=== PATIENT | female | born 1955 | race African-American/Black ===

== ENCOUNTER 2017-11-09 08:05 | Emergency (ER) | payer MEDICARE ==
[~2017-11-09] VITALS: Ht 165.1 cm; Wt 128.0 kg
[2017-11-09] MEDS ORDERED: ONDANSETRON HCL 4MG/2ML VIAL IV STA (09:14)
[2017-11-09] MEDS ORDERED: ASPIRIN 81MG TABLET PO STA (09:14)
[2017-11-09] MEDS ORDERED: NITROGLYCERIN 0.4MG TABLET SL SL PRN ×2 (09:15→12:15)
[2017-11-09 09:52] LABS: BASOPHILS % 0.6 % (0.0-2.0); EOSINOPHILS % 0.9 % (0.0-5.0); HEMOGLOBIN. 12.2 g/dL (12.0-16.0); LYMPHOCYTES % 15.3 % (20.0-50.0); MEAN CORPUSCULAR HEMOGLOBIN 29.5 pg (28.0-32.0); MEAN CORPUSCULAR VOLUME 91.8 fL (81.0-99.0); MEAN PLATELET VOLUME 9.6 fl (7.4-10.4); MONOCYTES % 7.9 % (2.0-8.0); NEUTROPHILS % 75.3 % (40.0-76.0); PLATELET 229 x1000/uL (130-400); RED BLOOD CELL COUNT 4.14 mill/uL (4.2-5.4); RED CELL DISTRIBUTION WIDTH 12.8 % (11.6-14.6)
[2017-11-09 09:59] LABS: CHLORIDE 106 mEq/L (98-107)
[2017-11-09 10:02] LABS: PARTIAL THROMBOPLASTIN TIME 25.4 sec (23.4-31.0); PROTHROMBIN TIME 10.5 sec (9.4-11.6)
[2017-11-09] MEDS ORDERED: ONDANSETRON HCL 4MG/2ML VIAL IV PRN (12:15)
[2017-11-09] MEDS ORDERED: NA PHOS,M-B/NA PHOS,DI-BA ENEMA 118ML PR PRN (12:15)
[2017-11-09] MEDS ORDERED: LORAZEPAM 0.5MG TABLET PO PRN (12:15)
[2017-11-09] MEDS ORDERED: CLONIDINE 0.1MG TABLET PO PRN (12:15)
[2017-11-09] MEDS ORDERED: ENOXAPARIN 40MG/0.4ML SYR SUBCUT SCH (12:15)
[2017-11-09] MEDS ORDERED: DOCUSATE SODIUM 100MG CAPSULE PO PRN (12:15)
[2017-11-09] MEDS ORDERED: MAGNESIUM/ALUMINUM HYDROXIDE/SIMETHICONE 30ML UDC PO PRN (12:15)
[2017-11-09] MEDS ORDERED: IPRATROPIUM/ALBUTEROL 0.5-3(2.5)MG/3ML NEB INH PRN (12:15)
[2017-11-09] MEDS ORDERED: DIPHENHYDRAMINE 50MG/ML VIAL IV PRN (12:15)
[2017-11-09] MEDS ORDERED: ACETAMINOPHEN 325MG TABLET PO PRN (12:15)
[2017-11-09] MEDS ORDERED: ZOLPIDEM TARTRATE 5MG TABLET PO PRN (12:15)
[2017-11-09] MEDS ORDERED: GUAIFENESIN 200MG/10ML SUGAR FREE UDC PO PRN (12:15)
[2017-11-09] MEDS ORDERED: TRAMADOL 50MG TABLET PO PRN (12:15)
[2017-11-09 12:50] VITALS: BP 136/74
[2017-11-09] MEDS ORDERED: FAMOTIDINE 20MG TABLET PO SCH (21:00)
[2017-11-09] MEDS ORDERED: METOPROLOL TARTRATE 25MG TABLET PO SCH (21:00)
[2017-11-10] MEDS ORDERED: ASPIRIN 325MG EC TABLET PO SCH (09:00)
== END 2017-11-09 13:43 | disposition left against medical advice (07) ==
LOC: ER 08:05 → EDBEDREQ 10:59 → ENRESERV 12:07 → CANRESERV 12:07 → SUPCPDRO 12:08 → ER 13:43 → CANBEDREQ 14:55
DX: R07.89 Other chest pain (principal); E11.9 Type 2 diabetes mellitus without complications; I10 Essential (primary) hypertension; R10.33 Periumbilical pain; Z88.5 Allergy status to narcotic agent
CPT/HCPCS: 36415; 71045; 76705; 80053; 80061; 83036; 83690; 84484; 85025; 85610; 85730; 93005; 93970; 96374; 99285; J2405

== ENCOUNTER 2021-08-31 12:29 | Inpatient (IN) | payer MEDICARE ==
[~2021-08-31] VITALS: Ht 170.2 cm; Wt 127.0 kg
[2021-08-31] MEDS ORDERED: ONDANSETRON HCL 4MG/2ML INJ IV STA (12:54)
[2021-08-31] MEDS ORDERED: KETOROLAC 15MG/ML VIAL IV ONE (13:00)
[2021-08-31] MEDS ORDERED: SODIUM CHLORIDE 0.9% 1,000 ML IV ONE (13:00)
[2021-08-31] MEDS ORDERED: LORAZEPAM 2MG/ML CPJ IV ONE ×2 (14:30→15:45)
[2021-08-31 15:03] LABS: HEMATOCRIT. 35.7 % (36.0-48.0); HEMOGLOBIN. 11.9 g/dL (12.0-16.0); MEAN CORPUSCULAR HEMOGLOBIN 29.2 pg (28.0-32.0); MEAN CORPUSCULAR VOLUME 87.8 fL (81.0-99.0); MEAN PLATELET VOLUME 9.4 fl (7.4-10.4); PLATELET 181 x1000/uL (130-400); RED BLOOD CELL COUNT 4.07 mill/uL (4.2-5.4); RED CELL DISTRIBUTION WIDTH 13.5 % (11.6-14.6)
[2021-08-31 15:04] LABS: CLARITY URINE CLEAR (CLEAR); COLOR URINE YELLOW (YELLOW); KETONES URINE TRACE (NEGATIVE); LEUKOCYTE ESTERASE URINE NEGATIVE (NEGATIVE); NITRITE URINE NEGATIVE (NEGATIVE); OCCULT BLOOD URINE NEGATIVE (NEGATIVE); PROTEIN URINE TRACE (NEGATIVE); SPECIFIC GRAVITY URINE 1.029 (1.005-1.030)
[2021-08-31 15:18] LABS: CHLORIDE 105 mEq/L (98-107)
[2021-08-31] MEDS ORDERED: CEFTRIAXONE 1 G PREMIX 50 ML IV ONE (15:45)
[2021-08-31] MEDS ORDERED: SODIUM BICARBONATE 8.4% 1 MEQ/ML 50ML SYR IV ONE (16:00)
[2021-08-31] MEDS ORDERED: ASPIRIN 325MG EC TABLET PO ONE (16:30)
[2021-08-31] MEDS ORDERED: CEFTRIAXONE 1 G PREMIX 50 ML IV NR (18:00)
[2021-08-31] MEDS ORDERED: KETOROLAC 15MG/ML VIAL IV NR (18:00)
[2021-08-31] MEDS ORDERED: SODIUM BICARBONATE 8.4% 1 MEQ/ML 50ML SYR IV NR (18:00)
[2021-08-31] MEDS ORDERED: ASPIRIN 325MG EC TABLET PO NR (18:00)
[2021-08-31] MEDS ORDERED: ONDANSETRON HCL 4MG/2ML INJ IV NR (18:00)
[2021-08-31] MEDS ORDERED: CLONIDINE 0.1MG TABLET PO PRN (18:45)
[2021-08-31] MEDS ORDERED: DOCUSATE SODIUM 100MG CAPSULE PO PRN (18:45)
[2021-08-31] MEDS ORDERED: DEXTROSE 50% WATER 50ML SYRINGE IV PRN (18:45)
[2021-08-31] MEDS ORDERED: IPRATROPIUM/ALBUTEROL 0.5-3(2.5)MG/3ML NEB HHN PRN (18:45)
[2021-08-31] MEDS ORDERED: ONDANSETRON HCL 4MG/2ML INJ IV PRN (18:45)
[2021-08-31] MEDS ORDERED: LORAZEPAM 0.5MG TABLET PO PRN (18:45)
[2021-08-31] MEDS ORDERED: HYDROCODONE/ACETAMINOPHEN 5/325MG TABLET PO PRN (18:45)
[2021-08-31] MEDS ORDERED: ACETAMINOPHEN 325MG TABLET PO PRN ×2 (18:45)
[2021-08-31] MEDS ORDERED: NALOXONE HCL 0.4MG/ML VIAL IV PRN (19:15)
[2021-08-31 20:49] LABS: PLATELET ESTIMATE NORMAL
[2021-08-31] MEDS ORDERED: BLOOD SUGAR DIAGNOSTIC STRIP TEST SCH (21:00)
[2021-08-31] MEDS: ENOXAPARIN 30MG/0.3ML SYR SUBCUT SCH ×2 (21:00→22:10)
[2021-08-31] MEDS ORDERED: INSULIN LISPRO 100 UNITS/ML SUBCUT SCH (21:00)
[2021-08-31 21:29] VITALS: BP 147/63
[2021-08-31 22:00] VITALS: BP 125/68
[2021-08-31] MEDS ORDERED: ALBUTEROL 6.7GM HFA INHALER ORI PRN (22:15)
[2021-09-01 06:00] VITALS: BP 136/65
[2021-09-01 06:18] LABS: HEMATOCRIT. 36.7 % (36.0-48.0); HEMOGLOBIN. 12.2 g/dL (12.0-16.0); MEAN CORPUSCULAR HEMOGLOBIN 29.7 pg (28.0-32.0); MEAN CORPUSCULAR VOLUME 89.1 fL (81.0-99.0); PLATELET 160 x1000/uL (130-400); RED BLOOD CELL COUNT 4.12 mill/uL (4.2-5.4); RED CELL DISTRIBUTION WIDTH 13.9 % (11.6-14.6)
[2021-09-01 07:16] LABS: CHLORIDE 106 mEq/L (98-107)
[2021-09-01 08:00] VITALS: BP 125/52
[2021-09-01] MEDS: ENOXAPARIN 30MG/0.3ML SYR SUBCUT SCH ×2 (08:44→21:00)
[2021-09-01] MEDS ORDERED: DEXTROSE 50% WATER 50ML SYRINGE IV PRN (09:00)
[2021-09-01] MEDS ORDERED: TRIA1TAB92 MT (11:02)
[2021-09-01] MEDS ORDERED: GLIM4TAB36 MT (11:02)
[2021-09-01] MEDS ORDERED: SIMV10TA97 MT (11:02)
[2021-09-01 11:42] LABS: *AMPHETAMINES SCREEN URINE NEGATIVE (NEGATIVE); *BARBITURATES SCREEN URINE NEGATIVE (NEGATIVE); *BENZODIAZEPINES SCREEN URINE NEGATIVE (NEGATIVE); *COCAINE SCREEN URINE NEGATIVE (NEGATIVE); CANNABINOID URINE SCREEN NEGATIVE (NEGATIVE); METHADONE URINE SCREEN NEGATIVE (NEGATIVE); OPIATES URINE SCREEN NEGATIVE (NEGATIVE); PHENCYCLIDINE URINE SCREEN NEGATIVE (NEGATIVE)
[2021-09-01] MEDS: BLOOD SUGAR DIAGNOSTIC STRIP TEST SCH ×3 (11:48→21:00)
[2021-09-01] MEDS: INSULIN LISPRO 100 UNITS/ML SUBCUT SCH ×4 (11:48→21:00)
[2021-09-01 12:00] VITALS: BP 149/80
[2021-09-01] MEDS ORDERED: VALS160T2 PO (15:15)
[2021-09-01 16:00] VITALS: BP 124/51
[2021-09-01] MEDS ORDERED: CYAN500T9 MT (17:20)
[2021-09-01] MEDS ORDERED: CHOL400D7 PO (17:20)
[2021-09-01] MEDS: DIOVAN 160 MG PO SCH (18:08)
[2021-09-01] MEDS: GLIMEPIRIDE 2MG TABLET PO SCH (18:09)
[2021-09-01 20:00] VITALS: BP 146/51
[2021-09-01 20:33] LABS: PLATELET ESTIMATE NORMAL
[2021-09-01] MEDS: SIMVASTATIN 10MG TABLET PO SCH (22:23)
[2021-09-02] VITALS: BP 120/62
[2021-09-02 04:00] VITALS: BP 130/70
[2021-09-02] MEDS: BLOOD SUGAR DIAGNOSTIC STRIP TEST SCH ×4 (06:56→21:00)
[2021-09-02] MEDS: INSULIN LISPRO 100 UNITS/ML SUBCUT SCH ×4 (06:57→21:00)
[2021-09-02 08:00] VITALS: BP 114/60
[2021-09-02] MEDS: DIOVAN 160 MG PO SCH ×2 (09:00→16:47)
[2021-09-02] MEDS: TRIAMTERENE/HYDROCHLOROTHIAZIDE 37.5/25MG CAPSULE PO SCH (09:00)
[2021-09-02] MEDS: GLIMEPIRIDE 2MG TABLET PO SCH ×3 (09:00→21:00)
[2021-09-02] MEDS: ENOXAPARIN 30MG/0.3ML SYR SUBCUT SCH ×2 (09:00→21:00)
[2021-09-02 12:00] VITALS: BP 112/56
[2021-09-02 16:00] VITALS: BP 122/61
[2021-09-02] MEDS ORDERED: MORPHINE SULFATE 2 MG/ML CPJ (NOT FOR IM USE) IV PRN (19:30)
[2021-09-02 20:00] VITALS: BP 131/83
[2021-09-02] MEDS ORDERED: DIOVAN 160 MG PO SCH (21:00)
[2021-09-02] MEDS: SIMVASTATIN 10MG TABLET PO SCH (22:25)
[2021-09-03 04:00] VITALS: BP 133/58
[2021-09-03] MEDS: BLOOD SUGAR DIAGNOSTIC STRIP TEST SCH ×2 (06:40→12:12)
[2021-09-03] MEDS: INSULIN LISPRO 100 UNITS/ML SUBCUT SCH ×2 (07:10→12:10)
[2021-09-03 07:44] LABS: BASOPHILS % 0.3 % (0.0-2.0); EOSINOPHILS % 1.8 % (0.0-5.0); HEMOGLOBIN. 12.9 g/dL (12.0-16.0); MEAN CORPUSCULAR HEMOGLOBIN 29.3 pg (28.0-32.0); MEAN CORPUSCULAR VOLUME 88.5 fL (81.0-99.0); MEAN PLATELET VOLUME 10.1 fl (7.4-10.4); MONOCYTES % 14.3 % (2.0-8.0); NEUTROPHILS % 45.6 % (40.0-76.0); PLATELET 192 x1000/uL (130-400); RED BLOOD CELL COUNT 4.41 mill/uL (4.2-5.4); RED CELL DISTRIBUTION WIDTH 13.1 % (11.6-14.6)
[2021-09-03 08:00] VITALS: BP 125/68
[2021-09-03 08:09] LABS: CHLORIDE 102 mEq/L (98-107)
[2021-09-03] MEDS: ENOXAPARIN 30MG/0.3ML SYR SUBCUT SCH (09:00)
[2021-09-03] MEDS: TRIAMTERENE/HYDROCHLOROTHIAZIDE 37.5/25MG CAPSULE PO SCH (09:25)
[2021-09-03] MEDS: GLIMEPIRIDE 2MG TABLET PO SCH (09:25)
[2021-09-03 12:00] VITALS: BP 130/81
[2021-09-03 14:03] VITALS: BP 125/78
== END 2021-09-03 16:20 | disposition home or self-care (01) | DRG 178 ==
LOC: ER 12:59 → 7EST 16:14 → EDBEDREQ 17:36 → ENRESERV 19:03
PROVIDERS: ADMIT Internal Medicine; ATTEND Internal Medicine
DX: U07.1 COVID-19 (principal); N39.0 Urinary tract infection, site not specified; Z68.41 Body mass index [BMI] 40.0-44.9, adult; K65.4 Sclerosing mesenteritis; E11.9 Type 2 diabetes mellitus without complications; E87.5 Hyperkalemia; I10 Essential (primary) hypertension; D64.9 Anemia, unspecified; E66.01 Morbid (severe) obesity due to excess calories; Z88.8 Allergy status to other drugs, medicaments and biological substances
CPT/HCPCS: 36415; 71045; 74176; 80048; 80053; 80305; 81003; 82728; 82962; 83036; 83880; 84132; 84145; 84484; 85025; 86140; 87426; 93005; 99285; J0696; J1650; J1885; J2060; J2270; J2405; J3490; J7030

== ENCOUNTER 2022-04-02 12:01 | Emergency (ER) | payer MEDICARE ==
[~2022-04-02] VITALS: Ht 160 cm; Wt 103.0 kg
[~2022-04-02 12:01] MED LIST: CHOL400D7 PO; CYAN500T9 MT; GLIM4TAB36 MT; SIMV10TA97 MT; TRIA1TAB92 MT; VALS160T2 PO
[2022-04-02] MEDS ORDERED: KETOROLAC 60MG/2ML VIAL IM STA (15:55)
[2022-04-02 16:39] LABS: CLARITY URINE CLEAR (CLEAR); COLOR URINE YELLOW (YELLOW); KETONES URINE NEGATIVE (NEGATIVE); LEUKOCYTE ESTERASE URINE NEGATIVE (NEGATIVE); NITRITE URINE NEGATIVE (NEGATIVE); OCCULT BLOOD URINE NEGATIVE (NEGATIVE); PH URINE 5.5 (4.5-8.0); PROTEIN URINE NEGATIVE (NEGATIVE); SPECIFIC GRAVITY URINE 1.025 (1.005-1.030)
[2022-04-02 16:40] LABS: BASOPHILS % 0.6 % (0.0-2.0); EOSINOPHILS % 1.3 % (0.0-5.0); HEMATOCRIT. 40.6 % (36.0-48.0); HEMOGLOBIN. 13.6 g/dL (12.0-16.0); LYMPHOCYTES % 33.4 % (20.0-50.0); MEAN CORPUSCULAR HEMOGLOBIN 30.4 pg (28.0-32.0); MEAN CORPUSCULAR VOLUME 90.9 fL (81.0-99.0); MEAN PLATELET VOLUME 9.3 fl (7.4-10.4); MONOCYTES % 9.8 % (2.0-8.0); NEUTROPHILS % 54.9 % (40.0-76.0); PLATELET 241 x1000/uL (130-400); RED BLOOD CELL COUNT 4.46 mill/uL (4.2-5.4); RED CELL DISTRIBUTION WIDTH 13.4 % (11.6-14.6)
[2022-04-02] MEDS ORDERED: IBUP-2029 MT (17:41)
[2022-04-02] MEDS ORDERED: CYCL10TA21 MT (17:41)
[2022-04-02 18:06] VITALS: BP 128/76
[2022-04-02] MEDS ORDERED: HYDROCODONE/ACETAMINOPHEN 5/325MG TABLET PO ONE (18:15)
[2022-04-02 18:34] LABS: CHLORIDE 106 mEq/L (98-107)
== END 2022-04-02 18:50 | disposition home or self-care (01) ==
LOC: ER 12:01
DX: M54.50 Low back pain, unspecified (principal); G89.29 Other chronic pain; D25.9 Leiomyoma of uterus, unspecified; I10 Essential (primary) hypertension; E11.9 Type 2 diabetes mellitus without complications; Z68.41 Body mass index [BMI] 40.0-44.9, adult
CPT/HCPCS: 36415; 74176; 80053; 81003; 83690; 85025; 96372; 99284; J1885

== ENCOUNTER → 2022-04-29 | Outpatient (CLI) | payer MEDICARE ==
[~2022-04-29] MED LIST changes: +BARIUM SULFATE 450ML ORAL SUSP ONE; +BARIUM SULFATE(VOLUMEN) 450 ML ORAL.SUSP ONE; +CYCL10TA21 MT; +DIATR MEGLU/DIATRIZOATE SOLN 120ML ONE; +IBUP-2029 MT
== END | disposition home or self-care (01) ==
LOC: CT 07:15
PROVIDERS: ATTEND Internal Medicine Gastroenterology
DX: R10.9 Unspecified abdominal pain (principal)
CPT/HCPCS: Q9963